=== PATIENT | male | born 1995 | race Hispanic/Latino ===

== ENCOUNTER 2017-06-30 02:43 | Emergency (ER) | payer MEDICAID, OTHER, SELFPAY ==
[2017-06-30 03:33] LABS: APPEARANCE,URINE Clear (CLEAR); BILIRUBIN,URINE Negative (NEGATIVE); COLOR,URINE Yellow (YELLOW); GLUCOSE, URINE (UA) Negative (NEGATIVE); KETONES,URINE Negative (NEGATIVE); LEUKOCYTE ESTERASE ,URINE Negative (NEGATIVE); NITRATE,URINE Negative (NEGATIVE); OCCULT BLOOD,URINE Negative (NEGATIVE); PROTEIN,URINE Negative (NEGATIVE); UROBILINOGEN,URINE 0.2 mg/dL (0.2-1.0)
[2017-06-30 03:38] LABS: BASOPHILS % (AUTO) 0.3 % (0.0-5.0); EOSINOPHILS % (AUTO) 0.1 % (0.0-8.0); HEMATOCRIT 42.6 % (42-54); LYMPHOCYTES % (AUTO) 18.1 % (21.0-51.0); MEAN CORPUSCULAR HEMOGLOBIN 32.3 pg (27.0-33.0); MEAN CORPUSCULAR HGB CONC 35.8 g/dL (32.0-36.0); MEAN CORPUSCULAR VOLUME 90.3 fL (80-100); MONOCYTES % (AUTO) 8.1 % (3.0-13.0); NEUTROPHILS % (AUTO) 73.4 % (40.0-77.0); PLATELET COUNT (AUTO) 259 K/uL (130-400); RED BLOOD CELL COUNT(AUTO) 4.71 MIL/uL (4.50-6.20); WHITE BLOOD COUNT (AUTO) 10.8 K/uL (4.8-10.8)
[2017-06-30 03:42] LABS: AMPHET/METH SCREEN,URINE NEGATIVE (NEGATIVE); BARBITURATE SCREEN, URINE NEGATIVE (NEGATIVE); BENZODIAZEPINES SCREEN,URINE POSITIVE (NEGATIVE); CANNABINOID SCREEN,URINE NEGATIVE (NEGATIVE); COCAINE SCREEN,URINE NEGATIVE (NEGATIVE); OPIATE SCREEN,URINE NEGATIVE (NEGATIVE); PHENCYCLIDINE SCREEN,URINE NEGATIVE (NEGATIVE)
[2017-06-30 03:44] LABS: CARBON DIOXIDE 27 mmol/L (21-32); CHLORIDE 103 mmol/L (101-111); GLOMERULAR FILTR. RATE CALC 101 mL/min (>60); GLUCOSE,RANDOM 169 mg/dL (70-105); POTASSIUM 3.1 mmol/L (3.5-5.1); SODIUM SERUM 143 mmol/L (136-145); UREA NITROGEN, BLOOD 6 mg/dL (7-18)
[2017-06-30 03:48] LABS: ACETAMINOPHEN < 1 mcg/mL (10-29); ALANINE AMINOTRANSFERASE 45 U/L (12-78); ASPARTATE AMINOTRANSFERASE 27 U/L (10-37); BILIRUBIN,TOTAL 0.5 mg/dL (0.2-1.0); TOTAL PROTEIN, SERUM 8.3 g/dL (6.0-8.3)
[2017-06-30] MEDS ORDERED: POTASSIUM BICARB/CIT AC 25 MEQ TABLET.EFF ONE (05:08)
== END 2017-06-30 07:38 | disposition home or self-care (01) ==
LOC: EDH 02:43
DX: F41.1 Generalized anxiety disorder (principal); G47.00 Insomnia, unspecified
CPT/HCPCS: 36415; 80053; 80305; 81003; 85025; 99284; G0480 ×2; G0481

== ENCOUNTER 2017-07-06 14:24 | Inpatient (IN) | payer OTHER, SELFPAY ==
[~2017-07-06] VITALS: Ht 165.1 cm; Wt 81.6 kg
[2017-07-06 15:28] LABS: BASOPHILS % (AUTO) 0.3 % (0.0-5.0); EOSINOPHILS % (AUTO) 0.1 % (0.0-8.0); HEMATOCRIT 43.7 % (42-54); MEAN CORPUSCULAR HEMOGLOBIN 32.1 pg (27.0-33.0); MEAN CORPUSCULAR HGB CONC 34.8 g/dL (32.0-36.0); MEAN CORPUSCULAR VOLUME 92.1 fL (80-100); MONOCYTES % (AUTO) 4.9 % (3.0-13.0); NEUTROPHILS % (AUTO) 88.7 % (40.0-77.0); PLATELET COUNT (AUTO) 246 K/uL (130-400); RED BLOOD CELL COUNT(AUTO) 4.75 MIL/uL (4.50-6.20); RED CELL DISTRIBUTION WIDTH 12.8 % (11.0-15.5); WHITE BLOOD COUNT (AUTO) 13.7 K/uL (4.8-10.8)
[2017-07-06 15:36] LABS: CARBON DIOXIDE 28 mmol/L (21-32); CHLORIDE 103 mmol/L (101-111); CREATININE 1.3 mg/dL (0.5-1.5); GLOMERULAR FILTR. RATE CALC 75 mL/min (>60); GLUCOSE,RANDOM 114 mg/dL (70-105); POTASSIUM 3.2 mmol/L (3.5-5.1); SODIUM SERUM 143 mmol/L (136-145); UREA NITROGEN, BLOOD 9 mg/dL (7-18)
[2017-07-06 15:40] LABS: ALANINE AMINOTRANSFERASE 69 U/L (12-78); ALBUMIN 3.9 g/dL (3.5-5.0); ASPARTATE AMINOTRANSFERASE 37 U/L (10-37); BILIRUBIN,TOTAL 0.7 mg/dL (0.2-1.0); TOTAL PROTEIN, SERUM 7.9 g/dL (6.0-8.3)
[2017-07-06 15:42] LABS: ACETAMINOPHEN < 1 mcg/mL (10-29); SALICYLATE < 2.8 mg/dL (2.8-20.0)
[2017-07-06 16:24] LABS: APPEARANCE,URINE Clear (CLEAR); BILIRUBIN,URINE Negative (NEGATIVE); COLOR,URINE Yellow (YELLOW); GLUCOSE, URINE (UA) Negative (NEGATIVE); KETONES,URINE Negative (NEGATIVE); LEUKOCYTE ESTERASE ,URINE Negative (NEGATIVE); NITRATE,URINE Negative (NEGATIVE); OCCULT BLOOD,URINE Small (NEGATIVE); PROTEIN,URINE POS 1+ (NEGATIVE)
[2017-07-06 16:35] LABS: BACTERIA,URINE Few /HPF (None Seen); MUCUS,URINE Few LPF (None Seen); RBC,URINE 0-1 /HPF (0-1); SQUAMOUS EPITHELIAL CELL,UR Few /LPF (0-2)
[2017-07-06 16:37] LABS: HYALINE CASTS, URINE 0-1 /LPF (0-1 /LPF); OTHER CASTS, URINE WBC CASTS 1+ /LPF (None Seen)
[2017-07-06] MEDS ORDERED: POTASSIUM BICARB/CIT AC 25 MEQ TABLET.EFF ONE ×2 (16:55→16:58)
[2017-07-06 17:12] LABS: AMPHET/METH SCREEN,URINE NEGATIVE (NEGATIVE); BARBITURATE SCREEN, URINE NEGATIVE (NEGATIVE); BENZODIAZEPINES SCREEN,URINE POSITIVE (NEGATIVE); CANNABINOID SCREEN,URINE NEGATIVE (NEGATIVE); COCAINE SCREEN,URINE NEGATIVE (NEGATIVE); OPIATE SCREEN,URINE NEGATIVE (NEGATIVE); PHENCYCLIDINE SCREEN,URINE NEGATIVE (NEGATIVE)
[2017-07-06 17:32] LABS: CREATINE KINASE MB 0.8 ng/mL (0.5-3.6)
[2017-07-06] MEDS ORDERED: ASPIRIN 325 MG TABLET ONE (18:33)
[2017-07-06] MEDS ORDERED: METOPROLOL TARTRATE 1 MG/ML 5ML VIAL IV ONE (19:39)
[2017-07-06] MEDS ORDERED: ENOXAPARIN SODIUM 40 MG/0.4 ML SYRINGE SQ ONE (21:13)
[2017-07-06] MEDS ORDERED: SODIUM CHLORIDE 0.9% 1000ML 1,000 ML IV ONE (21:13)
[2017-07-06 22:51] VITALS: BP 138/63
[2017-07-06] MEDS: SODIUM CHLORIDE 0.9% 1000ML 1,000 ML IV SCH (23:00)
[2017-07-06] MEDS ORDERED: ESCI10TA54 PO (23:08)
[2017-07-06] MEDS ORDERED: ALPR0.25 PO (23:08)
[2017-07-07 03:45] VITALS: BP 107/59
[2017-07-07] MEDS ORDERED: POTASSIUM CHLORIDE 20 MEQ ERTAB PO SCH (04:15)
[2017-07-07 06:34] LABS: CREATINE KINASE MB 1.2 ng/mL (0.5-3.6); TROPONIN I 0.06 ng/mL (0.00-0.06)
[2017-07-07 07:15] VITALS: BP 127/63
[2017-07-07] MEDS: ENOXAPARIN SODIUM 40 MG/0.4 ML SYRINGE SQ SCH (07:30)
[2017-07-07] MEDS ORDERED: ALPRAZOLAM 0.25 MG TABLET ONE (07:34)
[2017-07-07] MEDS: ALPRAZOLAM 0.25 MG TABLET PO SCH ×4 (07:35→20:29)
[2017-07-07] MEDS: PANTOPRAZOLE SODIUM 40 MG TABLET.DR PO SCH (07:36)
[2017-07-07] MEDS: SODIUM CHLORIDE 0.9% 1000ML 1,000 ML IV SCH (10:44)
[2017-07-07] MEDS ORDERED: OLANZAPINE 10MG/ML 1ML VIAL IM PRN ×2 (10:45→22:15)
[2017-07-07 11:15] VITALS: BP 131/67
[2017-07-07] MEDS: OLANZAPINE 5 MG TAB PO SCH (11:15)
[2017-07-07 16:30] VITALS: BP 143/77
[2017-07-07] MEDS: LORAZEPAM 2 MG/ML 1 ML VIAL IVP PRN ×2 (17:57→23:48)
[2017-07-07 19:21] VITALS: BP 124/76
[2017-07-07] MEDS: CITALOPRAM 20 MG TABLET PO SCH (20:29)
[2017-07-07] MEDS ORDERED: HALOPERIDOL 5 MG TABLET PO PRN (22:15)
[2017-07-07] MEDS ORDERED: OLANZAPINE 10MG/ML 1ML VIAL IM ONE (22:23)
[2017-07-07] MEDS ORDERED: LORAZEPAM 2 MG/ML 1 ML VIAL IVP ONE (23:45)
[2017-07-07] MEDS ORDERED: LORAZEPAM 2 MG/ML 1 ML VIAL IVP PRN (23:45)
[2017-07-08] VITALS (7 sets, daily range): BP systolic 123–157; BP diastolic 64–90
[2017-07-08] MEDS ORDERED: ZIPRASIDONE MESYLATE 20 MG/VIAL IM PRN (00:30)
[2017-07-08] MEDS: SODIUM CHLORIDE 0.9% 1000ML 1,000 ML IV SCH ×3 (01:40→23:54)
[2017-07-08] MEDS ORDERED: LORAZEPAM 2 MG/ML 1 ML VIAL IVP PRN (01:45)
[2017-07-08] MEDS ORDERED: ZIPRASIDONE MESYLATE 20 MG/VIAL IM ONE (02:40)
[2017-07-08] MEDS: ALPRAZOLAM 0.25 MG TABLET PO SCH (09:00)
[2017-07-08] MEDS: OLANZAPINE 5 MG TAB PO SCH (09:00)
[2017-07-08] MEDS: ENOXAPARIN SODIUM 40 MG/0.4 ML SYRINGE SQ SCH (09:00)
[2017-07-08] MEDS: PANTOPRAZOLE SODIUM 40 MG TABLET.DR PO SCH (09:00)
[2017-07-08 12:28] LABS: HEMATOCRIT 46.6 % (42-54); MEAN CORPUSCULAR HEMOGLOBIN 31.3 pg (27.0-33.0); MEAN CORPUSCULAR HGB CONC 33.9 g/dL (32.0-36.0); MEAN CORPUSCULAR VOLUME 92.3 fL (80-100); NUCLEATED RED BLOOD CELLS 0.1 % (0.0-0.19); PLATELET COUNT (AUTO) 240 K/uL (130-400); RED BLOOD CELL COUNT(AUTO) 5.05 MIL/uL (4.50-6.20); RED CELL DISTRIBUTION WIDTH 13.5 % (11.0-15.5); WHITE BLOOD COUNT (AUTO) 11.2 K/uL (4.8-10.8)
[2017-07-08 13:01] LABS: ALBUMIN 3.9 g/dL (3.5-5.0); BILIRUBIN,TOTAL 0.7 mg/dL (0.2-1.0); CREATININE 0.9 mg/dL (0.5-1.5); MAGNESIUM 2.1 mg/dL (1.80-2.40); POTASSIUM 4.3 mmol/L (3.5-5.1); TOTAL PROTEIN, SERUM 8.1 g/dL (6.0-8.3)
[2017-07-08] MEDS ORDERED: CLONAZEPAM 0.5 MG TABLET PO PRN ×2 (19:45)
[2017-07-08] MEDS: DIPHENHYDRAMINE HCL 25 MG CAPSULE PO PRN (20:44)
[2017-07-08] MEDS: CLONAZEPAM 0.5 MG TABLET PO SCH (20:44)
[2017-07-08] MEDS: CITALOPRAM 20 MG TABLET PO SCH (20:44)
[2017-07-09 03:16] VITALS: BP 115/51
[2017-07-09 07:43] VITALS: BP 124/77
[2017-07-09] MEDS: ENOXAPARIN SODIUM 40 MG/0.4 ML SYRINGE SQ SCH (09:00)
[2017-07-09] MEDS: PANTOPRAZOLE SODIUM 40 MG TABLET.DR PO SCH (10:15)
[2017-07-09] MEDS: SODIUM CHLORIDE 0.9% 1000ML 1,000 ML IV SCH ×3 (10:19→22:15)
[2017-07-09 11:46] VITALS: BP 136/67
[2017-07-09 16:31] VITALS: BP 130/66
[2017-07-09 19:18] VITALS: BP 135/71
[2017-07-09] MEDS: DIPHENHYDRAMINE HCL 25 MG CAPSULE PO PRN (20:44)
[2017-07-09] MEDS: CLONAZEPAM 0.5 MG TABLET PO SCH (20:44)
[2017-07-09] MEDS: CITALOPRAM 20 MG TABLET PO SCH (20:44)
[2017-07-09 23:00] VITALS: BP 141/82
[2017-07-10] MEDS: DIPHENHYDRAMINE HCL 25 MG CAPSULE PO PRN (02:23)
[2017-07-10 03:38] VITALS: BP 117/55
[2017-07-10] MEDS: SODIUM CHLORIDE 0.9% 1000ML 1,000 ML IV SCH ×3 (04:20→22:34)
[2017-07-10] MEDS: PANTOPRAZOLE SODIUM 40 MG TABLET.DR PO SCH (09:01)
[2017-07-10] MEDS: ENOXAPARIN SODIUM 40 MG/0.4 ML SYRINGE SQ SCH (09:02)
[2017-07-10] MEDS ORDERED: GADOBENATE DIMEGLUMINE 20 ML IV ONE (10:01)
[2017-07-10 11:34] VITALS: BP 138/81
[2017-07-10 16:00] VITALS: BP 145/72
[2017-07-10 19:31] VITALS: BP 145/82
[2017-07-10] MEDS: CITALOPRAM 20 MG TABLET PO SCH (20:14)
[2017-07-10] MEDS: CLONAZEPAM 0.5 MG TABLET PO SCH (20:14)
[2017-07-10 23:03] VITALS: BP 133/77
[2017-07-11 03:39] VITALS: BP 134/97
[2017-07-11] MEDS: SODIUM CHLORIDE 0.9% 1000ML 1,000 ML IV SCH ×2 (06:15→14:38)
[2017-07-11 08:00] VITALS: BP 126/68
[2017-07-11] MEDS: PANTOPRAZOLE SODIUM 40 MG TABLET.DR PO SCH (08:05)
[2017-07-11] MEDS: ENOXAPARIN SODIUM 40 MG/0.4 ML SYRINGE SQ SCH (08:05)
[2017-07-11 12:00] VITALS: BP 145/78
[2017-07-11 16:00] VITALS: BP 133/74
[2017-07-11 19:41] VITALS: BP 126/68
[2017-07-11] MEDS: CLONAZEPAM 0.5 MG TABLET PO SCH (20:27)
[2017-07-11] MEDS: CITALOPRAM 20 MG TABLET PO SCH (20:27)
[2017-07-11 23:34] VITALS: BP 126/66
[2017-07-12] MEDS: SODIUM CHLORIDE 0.9% 1000ML 1,000 ML IV SCH ×5 (03:34→22:48)
[2017-07-12 04:58] VITALS: BP 111/56
[2017-07-12 07:35] VITALS: BP 125/74
[2017-07-12] MEDS: PANTOPRAZOLE SODIUM 40 MG TABLET.DR PO SCH (11:03)
[2017-07-12] MEDS: ENOXAPARIN SODIUM 40 MG/0.4 ML SYRINGE SQ SCH (11:03)
[2017-07-12 11:31] VITALS: BP 133/79
[2017-07-12] MEDS ORDERED: CITA-106 PO (14:03)
[2017-07-12] MEDS ORDERED: CLON0.5T4 PO ×2 (14:03)
[2017-07-12 17:20] VITALS: BP 140/65
[2017-07-12 19:49] VITALS: BP 140/82
[2017-07-12] MEDS: CLONAZEPAM 0.5 MG TABLET PO SCH (20:50)
[2017-07-12] MEDS: CITALOPRAM 20 MG TABLET PO SCH (20:50)
[2017-07-12 23:46] VITALS: BP 114/55
[2017-07-13 03:49] VITALS: BP 112/44
[2017-07-13] MEDS: SODIUM CHLORIDE 0.9% 1000ML 1,000 ML IV SCH ×2 (06:05→20:35)
[2017-07-13 07:00] VITALS: BP 130/50
[2017-07-13] MEDS: ENOXAPARIN SODIUM 40 MG/0.4 ML SYRINGE SQ SCH (09:24)
[2017-07-13] MEDS: PANTOPRAZOLE SODIUM 40 MG TABLET.DR PO SCH (09:24)
[2017-07-13 11:00] VITALS: BP 125/74
[2017-07-13 16:00] VITALS: BP 137/80
[2017-07-13 19:50] VITALS: BP 139/94
[2017-07-13] MEDS: CITALOPRAM 20 MG TABLET PO SCH (20:24)
[2017-07-13] MEDS: CLONAZEPAM 0.5 MG TABLET PO SCH (20:25)
[2017-07-13 23:33] VITALS: BP 113/62
[2017-07-14] MEDS: SODIUM CHLORIDE 0.9% 1000ML 1,000 ML IV SCH ×4 (03:11→22:48)
[2017-07-14 03:29] VITALS: BP 121/72
[2017-07-14 08:00] VITALS: BP 125/70
[2017-07-14] MEDS: PANTOPRAZOLE SODIUM 40 MG TABLET.DR PO SCH (08:48)
[2017-07-14] MEDS: ENOXAPARIN SODIUM 40 MG/0.4 ML SYRINGE SQ SCH (08:48)
[2017-07-14 12:00] VITALS: BP 131/79
[2017-07-14 16:00] VITALS: BP 139/75
[2017-07-14 19:35] VITALS: BP 153/93
[2017-07-14] MEDS: CITALOPRAM 20 MG TABLET PO SCH (20:27)
[2017-07-14] MEDS: CLONAZEPAM 0.5 MG TABLET PO SCH (20:28)
[2017-07-14 23:35] VITALS: BP 142/60
[2017-07-15 04:06] VITALS: BP 116/67
[2017-07-15] MEDS: SODIUM CHLORIDE 0.9% 1000ML 1,000 ML IV SCH ×2 (04:54→09:27)
[2017-07-15 08:00] VITALS: BP 139/96
[2017-07-15] MEDS: ENOXAPARIN SODIUM 40 MG/0.4 ML SYRINGE SQ SCH (09:26)
[2017-07-15] MEDS: PANTOPRAZOLE SODIUM 40 MG TABLET.DR PO SCH (09:26)
[2017-07-15 12:00] VITALS: BP 143/70
== END 2017-07-15 15:29 | DRG 880 ==
LOC: EDH 14:24 → EDHIP 14:25 → 2AH 21:42 → 2DH 21:42 → 3AH 07-13 19:35
PROVIDERS: ADMIT Family Medicine; ATTEND Family Medicine
DX: F41.0 Panic disorder [episodic paroxysmal anxiety] (principal); M62.82 Rhabdomyolysis; F20.9 Schizophrenia, unspecified; E86.0 Dehydration; F41.1 Generalized anxiety disorder
CPT/HCPCS: 36415; 70553; 71045; 80053; 80305; 81001; 82550; 82553; 83735; 83874; 84484; 85025; 85027; 93005; 93306; A4218; A9577; G0480; G0481; J1650; J2060; J3486; J3490; J7030; Q0163